=== PATIENT | female | born 1950 | race Caucasian/White ===

== ENCOUNTER 2022-10-17 00:23 | Day surgery (SDC) | payer MEDICARE, OTHER ==
[2022-10-17 08:54] VITALS: BP 121/75
[2022-10-17] MEDS ORDERED: ELIQUIS5 M2 PO (10:42)
[2022-10-17] MEDS ORDERED: VITAMIN B122500 MC1 PO (10:43)
[2022-10-17] MEDS ORDERED: MAGNESIUM OXID500 MG PO (10:43)
[2022-10-17] MEDS ORDERED: METO25ER PO (10:43)
[2022-10-17] MEDS ORDERED: PROLIA60 MG/1 ML SC (10:44)
[2022-10-17] MEDS ORDERED: Acerola C500 MG PO (10:44)
[2022-10-17] MEDS ORDERED: PROBIOTIC1 EA13 PO (10:45)
[2022-10-17] MEDS ORDERED: THERA-D2000 UNIT PO (10:45)
[2022-10-17 11:51] LABS: Thyroid Stimulating Hormone 2.14 uIU/mL (0.360-4.800); Thyroxine (T4) 9.3 ug/dL (4.8-13.9)
== END 2022-10-17 10:30 | disposition home or self-care (01) ==
LOC: ATC 00:23
PROVIDERS: Internal Medicine Endocrinology, Diabetes & Metabolism
DX: R53.83 Other fatigue (principal); R63.4 Abnormal weight loss; Z88.5 Allergy status to narcotic agent; Z88.8 Allergy status to other drugs, medicaments and biological substances
CPT/HCPCS: 80400; 82533; 84436; 84443; J0834